=== PATIENT | female | born 1940 | race Caucasian/White ===

== ENCOUNTER 2023-06-13 17:42 | Emergency (ER) | payer MEDICARE, OTHER, SELFPAY ==
[2023-06-13 17:42] VITALS: BMI 22.9
[2023-06-13 17:44] VITALS: BP 150/68
[2023-06-13 18:07] LABS: % Basophils 0.5 % (0-2); % Immature Granulocytes 0.2 % (0-0.5); % Monocytes 8.7 % (1.7-9.3); % Neutrophils 65.6 % (42.2-75.2); Absolute Eosinophils 0.1 10^3/uL (0-0.7); Absolute Lymphocytes 1.5 10^3/uL (1.2-3.4); Absolute Monocytes 0.6 10^3/uL (0.1-0.6); Absolute Neutrophils 4.4 10^3/uL (1.4-6.5); Hematocrit 36.7 % (37.0-47.0); Hemoglobin 12.3 g/dL (12.0-16.0); Mean Corp Hgb Conc. 33.5 g/dL (33.0-37.0); Mean Corpuscular Hgb 29.7 pg (27.0-31.0); Mean Corpuscular Volume 88.6 fL (81.0-99.0); Mean Platelet Volume 10.7 fL (7.4-10.4); Nucleated Red Blood Cells % 0 %; Platelet Count 173 10^3/uL (130-400); Red Blood Cell Count 4.14 10^6/uL (4.20-5.40); Red Cell Dist. Width 13.2 % (11.5-14.5); White Blood Cell Count 6.7 10^3/uL (4.8-10.8)
[2023-06-13 18:22] LABS: ALT (SGPT) 14 U/L (0-35); AST (SGOT) 24 U/L (14-36); Albumin 4.2 g/dl (3.5-5.0); Alkaline Phosphatase 66 U/L (38-126); Blood Urea Nitrogen 26 mg/dl (7-17); Carbon Dioxide 30 mmol/L (22-30); Chloride 102 mmol/L (98-107); Glucose 94 mg/dl (70-99); Potassium 3.9 mmol/L (3.5-5.1); Sodium 136 mmol/L (135-145); Total Bilirubin 0.5 mg/dl (0.2-1.3); eGFR > 60.00
[2023-06-13 18:33] LABS: Troponin I < 0.012 ng/ml
[2023-06-13 18:46] VITALS: BP 137/56
[2023-06-13 19:00] VITALS: BP 143/63
--- NOTE | 2023-06-13 19:01 | EDRN ---
Pt was cleaning her bathroom around 1600 and she got dizzy so she came out of the bathroom and sat down. Few minutes later she laid down and was still dizzy with slight nausea x 30-45 minutes. Pt called security at [facility] and someone came
and checked her VS. Pt still felt dizzy/nauseous when her VS were taken - noted little pain/pressure on both sides of her face into the back of her head. BP was in 150's and in ambulance pt says it was down to 124. Pt thought it was vasovagal
symdrome which she has occasionally however she usually breaks into cold sweat which did not happen this time. Pt adds she takes care of her who has Alzheimer's. Pt says she feels very relaxed at this time 'I am glad to be away from him
for a little.' Pt thinks she might have anxiety. Pt says symptoms in her face and head have lessened. No cp, sob, abd pain vomiting, fever/chills/cough, weakness.
[2023-06-13 20:00] VITALS: BP 142/65
--- NOTE | 2023-06-13 20:21 | ED.GENMED ---
History of Present Illness
General
Chief Complaint: Cardiac Symptoms
Time Seen by Provider: 06/13/23 19:56
Travel History
Have you had any contact with someone who has COVID-19?: No
Do you have any symptoms of coronavirus? Fever > 100 degrees, chills, cough, shortness of breath, sore throat, loss of taste or smell, muscle aches, or headache?: No
History of Present Illness
History of Present Illness:
HPI: Patient came in by ambulance from [facility]. Earlier in the day, she developed a very mild frontal headache associated with paresthesias to the bilateral face and in the left upper extremity. Overall she feels significant proved currently
spontaneously. She never had any chest pain. She had no shortness of breath.
EXAM:
GENERAL: Well appearing in no distress
HEENT: Moist oral mucosa
CARDIOVASCULAR: No murmurs, normal heart rate and rhythm, No chest wall tenderness
PULMONARY: No respiratory distress, breath sounds are clear and equal
ABDOMEN: Soft with no peritoneal signs, no tenderness
NEUROLOGIC: Excellent strength all extremities, no coordination deficits, normal sensation
PSYCHIATRIC: Appropriate mental status, normal insight and judgement
EXTREMITIES: Nontender, no edema, moves all extremities equally, strong radial pulse of the left upper extremity
SKIN: No rash, no lesions
ED COURSE:
8:45 PM: I initially evaluated patient
NUMBER AND COMPLEXITY OF PROBLEMS ADDRESSED AT THE ENCOUNTER
� Chronic conditions affecting care: High blood pressure, hyperlipidemia, NM, GERD
� Acute Exacerbation and/or Progression of Chronic Illness: This is an acute problem
� Differential Diagnosis includes: Paresthesias, anxiety, electrode abnormality, ACS, poorly controlled blood pressure
AMOUNT AND/OR COMPLEXITY OF DATA TO BE REVIEWED AND ANALYZED
� I performed an independent evaluation of and my interpretation is:
EKG: Sinus 72, normal axis, septal Q waves but otherwise no acute ST abnormality, no significant change from 06/22/2022
CT:
X-rays:
Laboratory Studies: CBC, chemistries, and troponin unremarkable
Other:
� Review of other/old records: The patient had endoscopy in July of last year due to iron deficiency anemia
� Clinical information was obtained by an independent historian: None needed
� Prescriptions/Medications Considered but not given:
� Further testing considered but not performed:
RISK OF COMPLICATIONS AND/OR MORBIDITY OR MORTALITY OF PATIENT MANAGEMENT
� Social determinants of health affecting care: [facility]
� Discussion with other providers:
� Escalation of care including admission/observation vs risk of discharge considered: The patient has spontaneous improvement of her symptoms. Her neurologic examination is normal. Troponin and EKG are unremarkable. She never
had any chest pain. Possible anxiety could be a contributing factor. She also states that she is under a lot of stress with her who has dementia.
Past History
Past History
ED Past Medical History: CAD, GERD, HTN, Hypercholesterolemia and Other (Gallstones)
ED Past Surgical History: Cholecystectomy and Gynecological
Social History
Tobacco: Non-smoker
Alcohol: None
Drug: None
Personal:
Living: with family
Family History
Family History: CAD
Phy Exam
Physical Exam
Physical Exam:
See HPI
Course
Orders/Labs/Results
Orders:
Orders
06/13/23 17:46
Electrocardiogram (*1) Urgent
Reason for Study: Chest Pain
EKG- Treatment ONCE
06/13/23 18:01
Complete Blood Count/With Diff Urgent
Comprehensive Metabolic Panel Urgent
Troponin I Urgent
Abnormal Lab Results
06/13/23
18:01
RBC 4.14 L 10^6/uL
(4.20-5.40)
Hct 36.7 L %
(37.0-47.0)
MPV 10.7 H fL
(7.4-10.4)
BUN 26 H mg/dl
(7-17)
06/13/23 18:01
06/13/23 18:01
Vital Signs
Initial and Last Documented VS:
Initial Vital Signs
Temp Pulse Resp BP Pulse Ox
99.0 F 76 16 150/68 97
06/13/23 17:44 06/13/23 17:44 06/13/23 17:44 06/13/23 17:44 06/13/23 17:44
Last Documented Vital Signs
Temp Pulse Resp BP Pulse Ox
99.0 F 65 12 142/65 96
06/13/23 17:44 06/13/23 20:00 06/13/23 20:00 06/13/23 20:00 06/13/23 19:00
*Critical Care Note
Total Time (30-74mins, 75-104mins- exclusive of procedures): Not Applicable
ED Attending Note
-
Portions of this chart may have been created with voice recognition software.� Occasional wrong word or��sound alike� substitutions may have occurred due to the inherent limitations of voice recognition software.
Discharge Plan
Departure
Patient Disposition: Home (Routine Discharge)
Date of Disposition: 06/13/23
Time of Disposition: 21:33
Patient with high blood pressure during this ER visit?: Yes
Discharge Problem:
Paresthesia
Prescriptions:
No Action
Premarin 1 APPLIC cream
1 applic vaginal WE
clobetasol-emollient 15 GM cream
5 gm TP HS
Patient Comments:
04/18/19 1550 BK. APPLY VAGINALLY BID X 1 MONTH, THEN HS X 1 MONTH, THEN OFF FOR 2 MONTHS. 04/19/19 IS THE LAST NIGHT OF USING IT HS
rosuvastatin 5 MG tablet
5 mg PO MOWEFR
amlodipine 5 MG tablet
5 mg PO DAILY Qty: 90 3RF
carvedilol 3.125 MG tablet
3.125 mg PO BID Qty: 180 3RF
polyethylene glycol 3350 17 GRAMS powder in packet
17 grams PO DAILY
aspirin 81 MG tablet,delayed release (DR/EC)
81 mg PO QPM
Citrucel 500 MG tablet
1,000 mg PO BID
metronidazole [MetroCream] 1 APPLIC cream
1 applic topical BID
Patient Comments:
04/18/19 1600 BK TO FACE
nitroglycerin 0.4 MG tablet, sublingual
0.4 mg sublingual [id number] PRN (Reason: CHEST PAIN)
ezetimibe 10 MG tablet
10 mg PO HS
Refresh Classic (PF) 10 DROPS dropperette
1 drops BOTH EYES BID
calcium carbonate-vitamin D3 [Oyster Shell Calcium-Vit D3] 500 MG tablet
1 tab PO BID
High Potency Probiotic 1 CAP capsule
1 cap PO DAILY
lansoprazole [Prevacid] 30 mg Capsule,Delayed Release(Dr/Ec)
30 mg PO DAILY
Referrals:
Jose Roberto Funez MD [Family Provider] -
Activity Restrictions/Additional Instructions:
The cause of your symptoms is unclear. It possibly may be related to anxiety. Your neurologic examination is normal. Cardiac blood work is normal. Other basic blood work is normal. EKG did not show any abnormality. Return here if worse.
Interventions
Interventions:
*Risk Screen - Suicide Last Done: 06/13/23 17:44
*General Assessment Last Done: 06/13/23 18:48
*Neglect/Abuse Screening Last Done: 06/13/23 17:44
ED- Fall Risk Assessment Last Done: 06/13/23 19:05
*ED COVID-19 Vaccine History Last Done: 06/13/23 17:44
ED- Pulmonary Assessment Last Done: 06/13/23 19:15
ED- Cardiac Assessment Last Done: 06/13/23 19:15
[2023-06-13] MEDS: TYLENOL 1000 MG PO (21:39)
[2023-06-13 21:41] VITALS: BP 155/65
--- NOTE | 2023-06-13 21:45 | EDRN ---
Pt given discharged instructions. Pt getting dressed for discharge, waiting for her grandson to pick her up.
== END 2023-06-13 22:33 | disposition home or self-care (01) ==
LOC: EMR 17:42
PROVIDERS: EMERGENCY PHYSICIAN Emergency Medicine; FAMILY PHYSICIAN Family Medicine
DX: R20.2 Paresthesia of skin (principal); R51.9 Headache, unspecified; I25.10 Atherosclerotic heart disease of native coronary artery without angina pectoris; I10 Essential (primary) hypertension; E78.00 Pure hypercholesterolemia, unspecified; D50.9 Iron deficiency anemia, unspecified; K21.9 Gastro-esophageal reflux disease without esophagitis; Z79.82 Long term (current) use of aspirin; Z90.49 Acquired absence of other specified parts of digestive tract; Z88.1 Allergy status to other antibiotic agents; Z88.5 Allergy status to narcotic agent; Z88.8 Allergy status to other drugs, medicaments and biological substances
CPT/HCPCS: 99283; 80053; 84484; 85025; 93005

== ENCOUNTER → 2023-11-06 16:07 | Outpatient (REF) | payer MEDICARE, OTHER, SELFPAY | LOC: HWWDC 16:07 | PROVIDERS: ATTENDING PHYSICIAN Family Medicine | DX: Z12.31 Encounter for screening mammogram for malignant neoplasm of breast (principal) | CPT/HCPCS: 77063; 77067 ==

== ENCOUNTER → 2024-03-29 12:55 | Outpatient (REF) | payer MEDICARE, OTHER, SELFPAY | LOC: HWRAD 12:55 | PROVIDERS: ATTENDING PHYSICIAN Family Medicine | DX: M81.0 Age-related osteoporosis without current pathological fracture (principal) | CPT/HCPCS: 77080 ==

== ENCOUNTER 2024-05-24 18:33 | Emergency (ER) | payer MEDICARE, OTHER, SELFPAY ==
[2024-05-24 18:49] VITALS: BP 166/88
[2024-05-24 19:17] LABS: % Basophils 0.5 % (0-2); % Eosinophils 1.5 % (0-6); % Immature Granulocytes 0.4 % (0-0.5); % Lymphocytes 21.6 % (20.5-51.1); % Monocytes 7.3 % (1.7-9.3); % Neutrophils 68.7 % (42.2-75.2); Absolute Eosinophils 0.1 10^3/uL (0-0.7); Absolute Lymphocytes 1.8 10^3/uL (1.2-3.4); Absolute Monocytes 0.6 10^3/uL (0.1-0.6); Absolute Neutrophils 5.9 10^3/uL (1.4-6.5); Hematocrit 38.5 % (37.0-47.0); Hemoglobin 12.9 g/dL (12.0-16.0); Mean Corp Hgb Conc. 33.5 g/dL (33.0-37.0); Mean Corpuscular Hgb 29.3 pg (27.0-31.0); Mean Corpuscular Volume 87.3 fL (81.0-99.0); Mean Platelet Volume 10.2 fL (7.4-10.4); Nucleated Red Blood Cells % 0 %; Platelet Count 200 10^3/uL (130-400); Red Blood Cell Count 4.41 10^6/uL (4.20-5.40); Red Cell Dist. Width 13.2 % (11.5-14.5); White Blood Cell Count 8.5 10^3/uL (4.8-10.8)
[2024-05-24 19:29] LABS: ALT (SGPT) 17 U/L (0-35); AST (SGOT) 23 U/L (14-36); Albumin 4.8 g/dl (3.5-5.0); Alkaline Phosphatase 67 U/L (38-126); Blood Urea Nitrogen 25 mg/dl (7-17); Calcium 9.1 mg/dl (8.4-10.2); Carbon Dioxide 28 mmol/L (22-30); Chloride 97 mmol/L (98-107); Glucose 98 mg/dl (70-99); Potassium 4.2 mmol/L (3.5-5.1); Sodium 135 mmol/L (135-145); Total Bilirubin 0.6 mg/dl (0.2-1.3); Total Protein 7.2 g/dl (6.3-8.2); eGFR > 60.00
[2024-05-24 19:40] LABS: Troponin I < 0.012 ng/ml
--- NOTE | 2024-05-24 20:34 | ED.GENMED ---
History of Present Illness
<Antoinette Lenz PA-C - Last Filed: 05/24/24 23:15>
General
Chief Complaint: Jaw Pain
Source: patient
Exam Limitations: none
Time Seen by Provider: 05/24/24 20:26
Nursing documentation reviewed up to this point in time: agreed with
History of Present Illness
History of Present Illness:
Patient is an 83-year-old female with history hypertension, hyperlipidemia, CAD presenting to the emergency department via EMS for evaluation of jaw pain which has since resolved. Patient states that around 5 PM she was having an argument with her
, who suffers from dementia, when she started to have pain in her jaw/chin. She reports it as a pressure type sensation. She then checked her blood pressure which was elevated into the 170s/80s and became concerned. She had someone from
her nursing facility, 'check her out 'and they recommended she be seen in the emergency department.
Patient states that her pain in her jaw resolved while she was in the waiting around 7 PM. At this time she describes only a mild headache.
Patient denies any associated shortness of breath, tearing back pain, weakness, lightheadedness, nausea, or diaphoresis.
Past History
<Antoinette Lenz PA-C - Last Filed: 05/24/24 23:15>
Past History
ED Past Medical History: CAD, GERD, HTN, Hypercholesterolemia and Other (Gallstones)
ED Past Surgical History: Cholecystectomy and Gynecological
Social History
Tobacco: Non-smoker
Alcohol: None
Drug: None
Personal:
Living: with family
Family History
Family History: CAD
Review of Systems
<Antoinette Lenz PA-C - Last Filed: 05/24/24 23:15>
Review of Systems
Allergies reviewed?: Yes
All Other Systems: ROS reviewed and negative except as documented in HPI and ROS
Phy Exam
<Antoinette Lenz PA-C - Last Filed: 05/24/24 23:15>
Physical Exam
Physical Exam:
Vitals: Hypertensive, otherwise vital signs stable. Afebrile
General: Patient is well appearing, no acute distress. Nontoxic appearing
Skin: Warm and dry, no rashes or lesions
Head: Normocephalic, atraumatic
Eyes: Sclera nonicteric. EOMs intact. No nystagmus.
Throat: Good dentition. Protecting airway
Neck: Normal ROM, no cervical spine tenderness, no meningismus
Cardiac: Regular rate and rhythm, no murmurs. No reproducible chest wall tenderness
Pulm: Normal respiratory effort, no wheezes, rales, rhonchi heard on exam. O2 saturation 98 on room air
Abdomen: Abdomen soft. No abdominal tenderness.
Extremities: No evidence of cyanosis or edema. No tenderness of bilateral lower extremities.
Neuro: AAOx3. Grossly intact.
Psychiatric: Normal affect.
Course
<Antoinette Lenz PA-C - Last Filed: 05/24/24 23:15>
Orders/Labs/Results
Orders:
Orders
05/24/24 18:36
EKG [Electrocardiogram (*1)] Urgent
Reason for Study: Other
Other Reason for Exam: jaw pain
EKG- Treatment ONCE
05/24/24 19:04
Complete Blood Count/With Diff Urgent
Comprehensive Metabolic Panel Urgent
Troponin I Urgent
05/24/24 21:51
Troponin I Urgent
05/24/24 22:05
Electrocardiogram (*1) Urgent
Reason for Study: Chest Pain
EKG- Treatment ONCE
Abnormal Lab Results
05/24/24
19:04
Chloride 97 L mmol/L
(98-107)
BUN 25 H mg/dl
(7-17)
05/24/24 19:04
05/24/24 19:04
Vital Signs
Initial and Last Documented VS:
Initial Vital Signs
Temp Pulse Resp BP Pulse Ox
98.1 F 71 16 166/88 98
05/24/24 18:49 05/24/24 18:49 05/24/24 18:49 05/24/24 18:49 05/24/24 18:49
Last Documented Vital Signs
Temp Pulse Resp BP Pulse Ox
98.1 F 65 18 140/52 95
05/24/24 18:49 05/24/24 22:55 05/24/24 22:55 05/24/24 22:55 05/24/24 22:55
<Larry Londono, DO - Last Filed: 05/24/24 22:41>
Orders/Labs/Results
Orders:
Orders
05/24/24 18:36
EKG [Electrocardiogram (*1)] Urgent
Reason for Study: Other
Other Reason for Exam: jaw pain
EKG- Treatment ONCE
05/24/24 19:04
Complete Blood Count/With Diff Urgent
Comprehensive Metabolic Panel Urgent
Troponin I Urgent
05/24/24 21:51
Troponin I Urgent
05/24/24 22:05
Electrocardiogram (*1) Urgent
Reason for Study: Chest Pain
EKG- Treatment ONCE
Abnormal Lab Results
05/24/24
19:04
Chloride 97 L mmol/L
(98-107)
BUN 25 H mg/dl
(7-17)
05/24/24 19:04
05/24/24 19:04
Vital Signs
Initial and Last Documented VS:
Initial Vital Signs
Temp Pulse Resp BP Pulse Ox
98.1 F 71 16 166/88 98
05/24/24 18:49 05/24/24 18:49 05/24/24 18:49 05/24/24 18:49 05/24/24 18:49
Last Documented Vital Signs
Temp Pulse Resp BP Pulse Ox
98.1 F 65 18 140/52 95
05/24/24 18:49 05/24/24 22:55 05/24/24 22:55 05/24/24 22:55 05/24/24 22:55
<Antoinette Lenz PA-C - Last Filed: 05/24/24 23:15>
MDM/Problems Addressed
Differential Diagnosis Includes:
Not limited to: GERD, panic attack, acute coronary syndrome, dental abscess, etc.
MDM/Problems Addressed:
83-year-old presenting with jaw pain which has since resolved associate with hypertension at home. Initial onset was after an argument with her . No exertional or pleuritic component. No associated shortness of breath or chest pain. On
arrival�patient is hypertensive, otherwise has stable vital signs. Physical exam as above. Patient very well-appearing, no apparent distress. Heart regular rate and rhythm. Lungs clear bilaterally. No lower extremity edema. Patient has good
dentition without any obvious signs of dental infection to explain jaw pain. By my assessment is resolved. Basic labs and EKG were initiated in triage. Lab work without any clinically significant abnormalities. Initial troponin undetectable.
EKG shows normal sinus rhythm without any acute ischemic changes. Ultimately very low suspicion for ACS or serious cardiac etiology. However�given risk factors, will trend troponin and EKG. Will closely monitor patient and reassess.
Update: Repeat troponin undetectable. EKG remains normal sinus rhythm and unchanged. At this point�patient remains asymptomatic. Do not suspect ACS or emergent cardiac etiology. No evidence of dental infection. Symptoms possibly related to
anxiety/argument with . Feel patient is stable for discharge home with primary care/cardiology follow-up outpatient. Close return precautions discussed. Patient seen with attending physician.
Chronic conditions affecting care:
Hypertension, CAD
Acute Exacerbation and/or Progression of Chronic Illness:
Acutely hypertensive
<Antoinette Lenz PA-C - Last Filed: 05/24/24 23:15>
*Pulse Oximetry
Patient hypoxic: no
*EKG
Interpreted by ED Provider?: Yes
EKG Intrepretation Date: 05/24/24
Interpretation: normal
Comparison EKG: no changes
Heart Rate: 69
Rate: normal
Rhythm: sinus
[place]: normal axis
Interval: normal interval
QRS Pattern: normal QRS
Ischemia: no ischemia
*In School Suspension Coordinator Interpretation
Rate: normal
Interpretation: normal
Heart Rate: 64
Rhythm: sinus
*Critical Care Note
Total Time (30-74mins, 75-104mins- exclusive of procedures): Not Applicable
Data Reviewed
Review of Other/Old Records Reveals: Testing (Cardiac echo 12/09/2022-left ventricular ejection fraction 60 to 65%, cardiac catheterization 07/30/[id number] CAD treated with medical therapy)
ED Attending Note
<Antoinette Lenz PA-C - Last Filed: 05/24/24 23:15>
-
Portions of this chart may have been created with voice recognition software.� Occasional wrong word or��sound alike� substitutions may have occurred due to the inherent limitations of voice recognition software.
<Larry Londono DO - Last Filed: 05/24/24 22:41>
ED Attending Note
Patient seen and examined by attending physician: Yes
I performed the substantive portion of visit, reviewed & personally made and approve the management plan that is documented in note by myself or JEROME.: Yes
ED Attending Note:
I evaluated patient at bedside. The patient is very comfortable in appearance. She no longer has any symptoms. EKG is normal with exception of septal Q waves.
Discharge Plan
Departure
Patient Disposition: Home (Routine Discharge)
Date of Disposition: 05/24/24
Time of Disposition: 22:39
Patient with high blood pressure during this ER visit?: Yes
Condition: Good
Covid-19: Not Applicable
Discharge Problem:
Jaw pain
Instructions: BLOOD PRESSURE
Prescriptions:
No Action
Premarin 1 APPLIC cream
1 applic vaginal WE
clobetasol-emollient 15 GM cream
5 gm TP HS
Patient Comments:
04/18/19 1550 BK. APPLY VAGINALLY BID X 1 MONTH, THEN HS X 1 MONTH, THEN OFF FOR 2 MONTHS. 04/19/19 IS THE LAST NIGHT OF USING IT HS
rosuvastatin 5 MG tablet
5 mg PO MOWEFR
amlodipine 5 MG tablet
5 mg PO DAILY Qty: 90 3RF
carvedilol 3.125 MG tablet
3.125 mg PO BID Qty: 180 3RF
polyethylene glycol 3350 17 GRAMS powder in packet
17 grams PO DAILY
aspirin 81 MG tablet,delayed release (DR/EC)
81 mg PO QPM
Citrucel 500 MG tablet
1,000 mg PO BID
metronidazole [MetroCream] 1 APPLIC cream
1 applic topical BID
Patient Comments:
04/18/19 1600 BK TO FACE
nitroglycerin 0.4 MG tablet, sublingual
0.4 mg sublingual [id number] PRN (Reason: CHEST PAIN)
ezetimibe 10 MG tablet
10 mg PO HS
Refresh Classic (PF) 10 DROPS dropperette
1 drops BOTH EYES BID
calcium carbonate-vitamin D3 [Oyster Shell Calcium-Vit D3] 500 MG tablet
1 tab PO BID
High Potency Probiotic 1 CAP capsule
1 cap PO DAILY
lansoprazole [Prevacid] 30 mg Capsule,Delayed Release(Dr/Ec)
30 mg PO DAILY
Referrals:
Jose Roberto Funez MD [Family Provider] - Follow up in 5-7 days
Activity Restrictions/Additional Instructions:
Return to the emergency department with any chest pain, shortness of breath, lightheadedness/dizziness, persistent jaw/neck pain, worsening of current symptoms, or any other concerns
-As discussed your workup the emergency department showed no acute abnormalities.
-Stay well-hydrated
-It is important that you monitor your symptoms closely and follow-up with your primary care/water resource project manager as needed
Interventions
Interventions:
*Risk Screen - Suicide Last Done: 05/24/24 18:49
*General Assessment Last Done: 05/24/24 18:49
*Neglect/Abuse Screening Last Done: 05/24/24 18:49
ED- Fall Risk Assessment Last Done: 05/24/24 22:23
ED-EENT Assessment Last Done: 05/24/24 21:04
ED- Cardiac Assessment Last Done: 05/24/24 21:04
Discharge Date and Time
Print Language: MAORI
[2024-05-24 20:41] VITALS: BP 154/75
[2024-05-24 21:00] VITALS: BP 157/71
[2024-05-24 22:27] LABS: Troponin I < 0.012 ng/ml
[2024-05-24 22:55] VITALS: BP 140/52
== END 2024-05-24 23:10 | disposition home or self-care (01) ==
LOC: EMR 18:33
PROVIDERS: Physician Assistant; Student in an Organized Health Care Education/Training Program; EMERGENCY PHYSICIAN Emergency Medicine; FAMILY PHYSICIAN Family Medicine
DX: R68.84 Jaw pain (principal); I10 Essential (primary) hypertension; I25.10 Atherosclerotic heart disease of native coronary artery without angina pectoris; E78.00 Pure hypercholesterolemia, unspecified
CPT/HCPCS: 99284; 80053; 84484; 85025; 93005

== ENCOUNTER 2024-08-07 09:19 | Emergency (ER) | payer MEDICARE, OTHER, SELFPAY ==
[2024-08-07 09:31] VITALS: BP 128/57
[2024-08-07 09:49] LABS: % Basophils 0.5 % (0-2); % Eosinophils 2.8 % (0-6); % Immature Granulocytes 0.3 % (0-0.5); % Lymphocytes 25.1 % (20.5-51.1); % Monocytes 7.7 % (1.7-9.3); % Neutrophils 63.6 % (42.2-75.2); Absolute Eosinophils 0.1 10^3/uL (0-0.7); Absolute Monocytes 0.3 10^3/uL (0.1-0.6); Absolute Neutrophils 2.5 10^3/uL (1.4-6.5); Hematocrit 37.1 % (37.0-47.0); Hemoglobin 12.5 g/dL (12.0-16.0); Mean Corp Hgb Conc. 33.7 g/dL (33.0-37.0); Mean Corpuscular Hgb 29.1 pg (27.0-31.0); Mean Corpuscular Volume 86.5 fL (81.0-99.0); Mean Platelet Volume 10.3 fL (7.4-10.4); Nucleated Red Blood Cells % 0 %; Platelet Count 148 10^3/uL (130-400); Red Blood Cell Count 4.29 10^6/uL (4.20-5.40); Red Cell Dist. Width 13.3 % (11.5-14.5); White Blood Cell Count 3.9 10^3/uL (4.8-10.8)
--- NOTE | 2024-08-07 09:51 | ED.GENMED ---
History of Present Illness
<Antoinette Lenz PA-C - Last Filed: 08/08/24 01:35>
General
Chief Complaint: Chest Pain
Source: patient
Exam Limitations: none
Time Seen by Provider: 08/07/24 09:42
Nursing documentation reviewed up to this point in time: agreed with
History of Present Illness
History of Present Illness:
Patient is an 84-year-old female with history of CAD, hypertension, hyperlipidemia, GERD presenting to the emergency department for evaluation of chest tightness. Patient states symptoms woke her from sleep around 730 this morning and describes a
tightness sensation in her upper chest with some radiation into her left shoulder. She denies any associated shortness of breath, lightheadedness, nausea, or diaphoresis. Symptoms seem to last about an hour although currently have resolved.
Patient does states she tested positive for COVID on Thursday. She is currently on her last day of Paxlovid. She does report a few days of dry cough although denies any fever.
No recent travel or recent surgeries.
Of note�patient did have an [place] 2004 and had 1 stent placed. She currently follows with Dr. Leonard. She has a regular scheduled appointment next Thursday
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
Past History
<Antoinette Lenz PA-C - Last Filed: 08/08/24 01:35>
Past History
ED Past Medical History: CAD, GERD, HTN, Hypercholesterolemia and Other (Gallstones)
ED Past Surgical History: Cholecystectomy and Gynecological
Social History
Tobacco: Non-smoker
Alcohol: None
Drug: None
Personal:
Living: with family
Family History
Family History: CAD
Review of Systems
<Antoinette Lenz PA-C - Last Filed: 08/08/24 01:35>
Review of Systems
Allergies reviewed?: Yes
All Other Systems: ROS reviewed and negative except as documented in HPI and ROS
Phy Exam
<Antoinette Lenz PA-C - Last Filed: 08/08/24 01:35>
Physical Exam
Physical Exam:
Vitals: Patient's vital signs are stable. Afebrile
General: Patient is very well appearing, no acute distress. Nontoxic appearing.
Skin: Warm and dry, no rashes or lesions
Head: Normocephalic, atraumatic
Eyes: Sclera nonicteric. EOMs intact. No nystagmus.
Throat: Protecting airway
Neck: Normal ROM, no cervical spine tenderness, no meningismus. No JVD
Cardiac: Regular rate and rhythm, no murmurs. No reproducible chest wall tenderness.
Pulm: Normal respiratory effort, no wheezes, rales, rhonchi heard on exam.
Abdomen: Abdomen soft and nontender.
Extremities: No evidence of cyanosis or edema. Palpable DP pulses bilaterally
Neuro: AAOx3. Grossly intact.
Psychiatric: Normal affect.
Scores
<Antoinette Lenz PA-C - Last Filed: 08/08/24 01:35>
Heart Score for Chest Pain Patients
STEMI patient?: No
History: Slightly or Non-Suspicious
ECG: Normal
Age: >/= 65 years
Risk Factors: >/= 3 Risk Factors or History of CAD
Troponin: </= Normal Limit
Heart Score for Chest Pain Patients: 4
Heart Score Risk: 20.3% MACE over next 6 weeks
Course
<Antoinette Lenz PA-C - Last Filed: 08/08/24 01:35>
Orders/Labs/Results
Orders:
Orders
08/07/24 09:20
Electrocardiogram (*1) Urgent
Reason for Study: Chest Pain
EKG- Treatment ONCE
08/07/24 09:41
Complete Blood Count/With Diff Urgent
Comprehensive Metabolic Panel Urgent
Troponin I Urgent
08/07/24 09:50
CR Chest - 2 Views Urgent
Comment: COVID +
Reason For Exam: Chest pain
08/07/24 12:45
Electrocardiogram (*1) Urgent
Reason for Study: Chest Pain
EKG- Treatment ONCE
08/07/24 12:49
Troponin I Urgent
Abnormal Lab Results
08/07/24
09:41
WBC 3.9 L 10^3/uL
(4.8-10.8)
Absolute Lymphs (auto) 1.0 L 10^3/uL
(1.2-3.4)
BUN 18 H mg/dl
(7-17)
Glucose 107 H mg/dl
(70-99)
08/07/24 09:41
08/07/24 09:41
Vital Signs
Initial and Last Documented VS:
Initial Vital Signs
Temp Pulse Resp BP Pulse Ox
98.3 F 63 14 128/57 97
08/07/24 09:31 08/07/24 09:31 08/07/24 09:31 08/07/24 09:31 08/07/24 09:31
Last Documented Vital Signs
Temp Pulse Resp BP Pulse Ox
98.3 F 63 15 130/63 97
08/07/24 09:31 08/07/24 12:30 08/07/24 12:30 08/07/24 12:00 08/07/24 12:30
<Brandon Mejia MD - Last Filed: 08/07/24 16:56>
Orders/Labs/Results
Orders:
Orders
08/07/24 09:20
Electrocardiogram (*1) Urgent
Reason for Study: Chest Pain
EKG- Treatment ONCE
08/07/24 09:41
Complete Blood Count/With Diff Urgent
Comprehensive Metabolic Panel Urgent
Troponin I Urgent
08/07/24 09:50
CR Chest - 2 Views Urgent
Comment: COVID +
Reason For Exam: Chest pain
08/07/24 12:45
Electrocardiogram (*1) Urgent
Reason for Study: Chest Pain
EKG- Treatment ONCE
08/07/24 12:49
Troponin I Urgent
Abnormal Lab Results
08/07/24
09:41
WBC 3.9 L 10^3/uL
(4.8-10.8)
Absolute Lymphs (auto) 1.0 L 10^3/uL
(1.2-3.4)
BUN 18 H mg/dl
(7-17)
Glucose 107 H mg/dl
(70-99)
08/07/24 09:41
08/07/24 09:41
Vital Signs
Initial and Last Documented VS:
Initial Vital Signs
Temp Pulse Resp BP Pulse Ox
98.3 F 63 14 128/57 97
08/07/24 09:31 08/07/24 09:31 08/07/24 09:31 08/07/24 09:31 08/07/24 09:31
Last Documented Vital Signs
Temp Pulse Resp BP Pulse Ox
98.3 F 63 15 130/63 97
08/07/24 09:31 08/07/24 12:30 08/07/24 12:30 08/07/24 12:00 08/07/24 12:30
<Antoinette Lenz PA-C - Last Filed: 08/08/24 01:35>
MDM/Problems Addressed
Differential Diagnosis Includes:
Not limited to: Chest wall strain, GERD, acute coronary syndrome, pneumonia, costochondritis, etc.
MDM/Problems Addressed:
84-year-old female presenting with one hour episode of chest tightness waking her from sleep this morning, resolved by arrival to ED. No associated shortness of breath, lightheadedness, diaphoresis, or nausea. Symptoms not similar in quality to
prior [place]. She is recovering from recent Covid infection. Vitals and physical exams above.
Work up in ED unremarkable, including labswork and serial troponins x2. EKG shows NSR without acute ischemic changes. Chest x-ray unremarkable without evidence of pneumonia. Overall low suspicion for acute coronary syndrome. Do not suspect pulmonary
embolism as patient has no shortness of breath, evidence of DVT on exam, and with normal vital signs.
Patient has remained asymptomatic since arrival to ED. Symptoms possibly secondary to recent viral illness, including pleurisy, costochondritis, pericarditis. However � given history and risk factors � will advise close follow up with primary
cardiology this week as scheduled. Very strict return precautions discussed. Patient comfortable with plan.
Chronic conditions affecting care:
CAD, hypertension, hyperlipidemia, GERD
Acute Exacerbation and/or Progression of Chronic Illness:
N/A
<Antoinette Lenz PA-C - Last Filed: 08/08/24 01:35>
*Radiology
Radiology exam reviewed: preliminary read by ED provider (CXR reviewed by me - no acute abnormalities) and radiology read reviewed
*Pulse Oximetry
Patient hypoxic: no
*EKG
Interpreted by ED Provider?: Yes
EKG Intrepretation Date: 08/07/24
Interpretation: normal
Comparison EKG: changes noted
Heart Rate: 67
Rate: normal
Rhythm: sinus
Kinder: normal axis
Interval: normal QT interval
QRS Pattern: normal QRS
Ischemia: no ischemia
*Brim Pouncer Machine Operator Interpretation
Rate: normal
Interpretation: normal
Heart Rate: 66
Rhythm: sinus
*Critical Care Note
Total Time (30-74mins, 75-104mins- exclusive of procedures): Not Applicable
ED Attending Note
<Antoinette Lenz PA-C - Last Filed: 08/08/24 01:35>
-
Portions of this chart may have been created with voice recognition software.� Occasional wrong word or��sound alike� substitutions may have occurred due to the inherent limitations of voice recognition software.
<Brandon Mejia MD - Last Filed: 08/07/24 16:56>
ED Attending Note
Patient seen and examined by attending physician: Yes
ED Attending Note:
Patient with history of [place] in 2004, presents to ED after waking up this morning with chest pain. Chest pain described as pressure, across upper chest wall, without any alleviating or exacerbating factors. Denies shortness of breath, nausea,
dizziness, or diaphoresis. Of note, patient is currently on day 5 of Paxlovid, for COVID infection, with symptoms consisting of nasal congestion, intermittent cough, and sore throat, with most symptoms having improved. Denies recent travel or
surgery. Denies sick contact. Denies leg pain or swelling. Denies back pain. Denies previous history of similar symptoms. Patient states that her symptoms lasted approx 1 hour, with spontaneous resolution. At the time of evaluation ED, patient
is without any chest pain. 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
Physical Exam
General: no apparent distress, not acutely ill. afebrile
Head: nc/at. eomi
Neck: supple. no meningeal signs.
Heart: s1/s2 regular rate and rhythm, no murmur.
Lungs: no acute respiratory distress. clear bilaterally. chest wall nontender to palpation
Abdomen: normal bowel sounds. not tender.
Neuro: alert and oriented x 3. no focal neurological deficits
Skin: no rash
Psychiatric: well kept. interactive and cooperative
Extremities: no edema. no calf tenderness.
Patient with an unremarkable workup in ED, including EKG along with repeat troponin. Patient otherwise remains afebrile, hemodynamically stable, and without recurrent chest pain during observation. History and exam inconsistent with ACS, but
likely secondary to ongoing COVID infection, i.e. pericarditis/pleurisy. However, in light of patient's cardiac history, difficult to exclude potential cardiac etiology. As such, patient will be advised to follow-up with her cardiology as
scheduled this week, but with consideration to return to ED with recurrent chest pain. Patient and her daughter expressed understanding at time of discharge.
Discharge Plan
Departure
Patient Disposition: Home (Routine Discharge)
Date of Disposition: 08/07/24
Time of Disposition: 13:32
Patient with high blood pressure during this ER visit?: No
Condition: Good
Covid-19: Confirmed COVID-19
Discharge Problem:
Chest pain
Instructions: Chest pain - Discharge instructions, Chest Pain DCA Follow Up
Prescriptions:
No Action
Premarin 1 APPLIC cream
1 applic vaginal WE
clobetasol-emollient 15 GM cream
5 gm TP HS
Patient Comments:
04/18/19 1550 BK. APPLY VAGINALLY BID X 1 MONTH, THEN HS X 1 MONTH, THEN OFF FOR 2 MONTHS. 04/19/19 IS THE LAST NIGHT OF USING IT HS
rosuvastatin 5 MG tablet
5 mg PO MOWEFR
amlodipine 5 MG tablet
5 mg PO DAILY Qty: 90 3RF
carvedilol 3.125 MG tablet
3.125 mg PO BID Qty: 180 3RF
polyethylene glycol 3350 17 GRAMS powder in packet
17 grams PO DAILY
aspirin 81 MG tablet,delayed release (DR/EC)
81 mg PO QPM
Citrucel 500 MG tablet
1,000 mg PO BID
metronidazole [MetroCream] 1 APPLIC cream
1 applic topical BID
Patient Comments:
04/18/19 1600 BK TO FACE
nitroglycerin 0.4 MG tablet, sublingual
0.4 mg sublingual [id number] PRN (Reason: CHEST PAIN)
ezetimibe 10 MG tablet
10 mg PO HS
Refresh Classic (PF) 10 DROPS dropperette
1 drops BOTH EYES BID
calcium carbonate-vitamin D3 [Oyster Shell Calcium-Vit D3] 500 MG tablet
1 tab PO BID
High Potency Probiotic 1 CAP capsule
1 cap PO DAILY
lansoprazole [Prevacid] 30 mg Capsule,Delayed Release(Dr/Ec)
30 mg PO DAILY
Referrals:
Ellen Taylor DO [Active] - Keep scheduled appt
Jose Roberto Funez MD [Family Provider] -
Activity Restrictions/Additional Instructions:
RETURN TO THE EMERGENCY DEPARTMENT WITH ANY RECURRENT CHEST PAIN, SHORTNESS OF BREATH, LIGHTHEADEDNESS/DIZZINESS, SEVERE BACK PAIN, PRODUCTIVE COUGH OR HIGH FEVERS, OR ANY OTHER CONCERNS
- As discussed�your workup in the emergency department showed no acute abnormalities today. Your chest x-ray showed no evidence of pneumonia.
- Continue to take medications as prescribed. It is important to stay well-hydrated.
- Keep your follow-up appointment with cardiology for this Thursday for further evaluation/management.
Monitor your symptoms closely and return to the emergency department with any acute worsening/new symptoms or any other concerns
Interventions
Interventions:
*Risk Screen - Suicide Last Done: 08/07/24 09:31
*General Assessment Last Done: 08/07/24 09:31
*Neglect/Abuse Screening Last Done: 08/07/24 09:31
*ED- Fall Risk Assessment Last Done: 08/07/24 09:31
*ED COVID-19 Vaccine History Last Done: 08/07/24 09:31
*Nursing Disposition Last Done: 08/07/24 13:40
ED- Cardiac Assessment Last Done: 08/07/24 10:00
Discharge Date and Time
Discharge Date/Time: 08/07/24 14:11
Print Language: COLOMBIAN
[2024-08-07 10:05] LABS: ALT (SGPT) 20 U/L (0-35); AST (SGOT) 27 U/L (14-36); Albumin 4.5 g/dl (3.5-5.0); Alkaline Phosphatase 73 U/L (38-126); Blood Urea Nitrogen 18 mg/dl (7-17); Calcium 9.3 mg/dl (8.4-10.2); Carbon Dioxide 25 mmol/L (22-30); Chloride 104 mmol/L (98-107); Glucose 107 mg/dl (70-99); Potassium 4.2 mmol/L (3.5-5.1); Sodium 138 mmol/L (135-145); Total Bilirubin 0.5 mg/dl (0.2-1.3); Total Protein 6.9 g/dl (6.3-8.2); eGFR > 60.00
[2024-08-07 10:10] LABS: Troponin I < 0.012 ng/ml
[2024-08-07 10:34] VITALS: BP 138/72
[2024-08-07 11:00] VITALS: BP 130/65
[2024-08-07 12:00] VITALS: BP 130/63
[2024-08-07 13:20] LABS: Troponin I < 0.012 ng/ml
== END 2024-08-07 14:11 | disposition home or self-care (01) ==
LOC: EMR 09:19
PROVIDERS: Physician Assistant; EMERGENCY PHYSICIAN Emergency Medicine; FAMILY PHYSICIAN Family Medicine
DX: R07.89 Other chest pain (principal); M25.512 Pain in left shoulder; U07.1 COVID-19; R05.9 Cough, unspecified; I25.10 Atherosclerotic heart disease of native coronary artery without angina pectoris; I10 Essential (primary) hypertension; E78.00 Pure hypercholesterolemia, unspecified; K21.9 Gastro-esophageal reflux disease without esophagitis; G62.9 Polyneuropathy, unspecified; K58.9 Irritable bowel syndrome, unspecified; M81.0 Age-related osteoporosis without current pathological fracture; D50.9 Iron deficiency anemia, unspecified; F41.9 Anxiety disorder, unspecified; I25.2 Old myocardial infarction; Z95.5 Presence of coronary angioplasty implant and graft; Z90.49 Acquired absence of other specified parts of digestive tract; Z88.1 Allergy status to other antibiotic agents; Z88.5 Allergy status to narcotic agent; Z88.8 Allergy status to other drugs, medicaments and biological substances
CPT/HCPCS: 99284; 71046; 80053; 84484; 85025; 93005

== ENCOUNTER → 2025-01-18 12:20 | Outpatient (REF) | payer MEDICARE, OTHER, SELFPAY | LOC: HWWDC 12:20 | PROVIDERS: ATTENDING PHYSICIAN Obstetrics & Gynecology; FAMILY PHYSICIAN Family Medicine | DX: Z12.31 Encounter for screening mammogram for malignant neoplasm of breast (principal) | CPT/HCPCS: 77063; 77067 ==